=== PATIENT | female | born 2000 | race Caucasian/White ===

== ENCOUNTER 2021-06-06 08:44 | Emergency (ER) | payer OTHER, SELFPAY ==
[2021-06-06 08:56] VITALS: PULSE 81; O2SAT 95
[2021-06-06 09:00] VITALS: BP 126/71; PULSE 77; PULSE 82; RESP 20; TEMP 36.8; O2SAT 95; O2SAT 99; BMI 26.5
--- NOTE | 2021-06-06 09:03 | DI.RAD.S_ITS ---
PROCEDURE: XR CHEST 2V INDICATIONS: pain TECHNIQUE: 2 views of the chest were acquired. COMPARISON: None. FINDINGS: Surgical changes and devices: None. Lungs and pleura: Lungs are clear. No pleural effusions or pneumothorax. Mediastinum: Mediastinal contours are normal. Heart size is normal. Bones and chest wall: No suspicious bony abnormalities. Soft tissues appear unremarkable. IMPRESSION: No acute cardiopulmonary disease. Dictated by: Dontae Jalloh M.D. on 06/06/2021 at 9:42 Approved by: Dontae Jalloh M.D. on 06/06/2021 at 9:42
--- NOTE | 2021-06-06 09:07 | ED_ITS ---
HPI - Back Pain/Injury General Chief Complaint: Back Pain/Injury Stated Complaint: sharp pain in back when she breathes Time Seen by Provider: 06/06/21 09:06 Source: patient Mode of arrival: Ambulatory Limitations: no limitations History of Present Illness HPI Narrative: This is a 20-year-old female comes emergency department with complaint of a sharp pain in her right thoracic back when she breathes patient states it has been present for 2 weeks it was initially only with very deep inspiration and has become persistent even with shallow per inspiration. Movement does not seem to make it worse. She has not had any fevers or chills. She has not had any lightheadedness, no syncope. She does not have any anterior chest pain it does not radiate elsewhere. No radiation down her arm. She has not had nausea or vomiting. No cough. Patient has any issues with bowel movements or urination. She states she has not had similar symptoms in the past. She has not tried any sban-erv-xqkwjur medications other than topical Velasquez-Gramajo. She has not had any rashes or skin changes. She denies any medical issues, no prior medications, no surgeries. No known drug allergies. No tobacco, alcohol or illicit. She denies any cardiac, pulmonary or embolic history in her family. Related Data Allergies Allergy/AdvReac Type Severity Reaction Status Date / Time No Known Drug Allergies Allergy Verified 06/06/21 09:08 Review of Systems Review of Systems ROS Unobtainable: All systems reviewed & are unremarkable except as noted in HPI and below Patient History Social History Smoking Status: Never smoker Exam Narrative Exam Narrative: GENERAL: Alert and oriented x three, female in mild distress. HEENT: Head normocephalic, atraumatic, EOMI, pupils reactive, face symmetric, moist mucous membranes NECK: Supple, full range of motion CARDIOVASCULAR: Regular rate and rhythm without murmurs, rubs or gallops. RESPIRATORY: Breath sounds equal bilaterally, no wheezes rales or rhonchi. ABDOMEN: Soft, nontender. Normoactive bowel sounds all 4 quadrants. No guarding or rebound, rigidity, no mass : No CVA tenderness BACK: No cervical, thoracic or lumbar vertebral point tenderness. Patient is nontender over the upper thoracic ribs, scapular back. Patient has normal range of motion. Patient's gait is normal. EXTREMITIES: Normal range of motion, no clubbing or edema. Neurovascularly intact NEUROLOGICAL: Cranial nerves II through XII grossly intact. Moving all extremities SKIN: Warm, dry, no petechiae, no rashes or lesions, warmth, erythema or other skin changes. Initial Vital Signs Initial Vital Signs: Vital Signs Pulse Rate 81 06/06/21 08:56 Pulse Oximetry 95 06/06/21 08:56 Course Orders Ordered: Discontinued Medications Ketorolac Tromethamine (Ketorolac 30 Mg/Ml Vial) 30 mg IM NOW ONE Stop: 06/06/21 10:14 Last Admin: 06/06/21 10:29 Dose: 30 mg Documented by: CAROLINA Vital Signs Vital signs: Vital Signs - 8 hr 06/06/21 09:00 Temperature 98.2 F Pulse Rate 82 Respiratory Rate 20 Blood Pressure 126/71 Pulse Oximetry 99 MDM - Back Pain/Injury Lab Data Labs: Lab Results 06/06/21 Range/Units 09:18 SARS-CoV-2 (PCR) Negative (Negative) Imaging Data Chest x-ray: Radiologist's Impression: [place] [address] XRay Report Signed Patient: Zoila Naranjo MR#: [id number] : 2000 Acct:[id number] Age/Sex: 20 / F Date of Service: 06/06/21 Loc: Accession Number: [id number] ?? Procedure: XR chest 2V Ordering Provider: Lena Nunez D.O. PROCEDURE:? XR CHEST 2V ? INDICATIONS:? pain ? TECHNIQUE:? 2 views of the chest were acquired.? ? COMPARISON:? None. ? FINDINGS:? ? Surgical changes and devices:? None.? ? Lungs and pleura:? Lungs are clear.? No pleural effusions or pneumothorax.? ? Mediastinum:? Mediastinal contours are normal.? Heart size is normal.? ? Bones and chest wall:? No suspicious bony abnormalities.? Soft tissues appear unremarkable.? ? IMPRESSION:? No acute cardiopulmonary disease. ? ? Dictated by: Dontae Jalloh M.D. on 06/06/2021 at 9:42 ? ? Approved by: Dontae Jalloh M.D. on 06/06/2021 at 9:42?? ECG Data Attestation: I personally reviewed and interpreted this ECG as follows: Interpretation: Sinus rhythm with short SC, rate of 66, SC 88, QRS of 76, QTC of 392. No acute ST changes. Rightward axis. Nonspecific. MDM Narrative Medical decision making narrative: 20-year-old female comes when with 2 weeks of the right thoracic/scapular back pain. Patient states it has been pleuritic and increasing uncomfortable. She has not tried any medications. Patient is otherwise healthy, no daily medications are control, no long distance travel, EKG, chest x-ray and COVID swab do not show any acute abnormalities. Discussed with patient she defers any additional workup we did discuss obtaining blood for further evaluation. At this time for comfortable with pain management. We did discuss wide differential. Plan for Toradol, ibuprofen at home. Patient is having worsening symptoms that are not resolving or if she is having any new or concerning symptoms she is to return. Discharge Plan Departure Patient Disposition: Home Clinical Impression: Back pain, thoracic Instructions: Thoracic Back Pain Activity Restrictions/Additional Instructions: Follow-up with your physician for recheck if not resolving. Patient you may take ibuprofen up to 600 mg every 6 hours. If in adequate you may add Tylenol to 1000 mg every 8 hours. If you have new or worsening back pain, new chest pain, lightheadedness or passing out, shortness of breath, vomiting, new swelling in her extremities or other new or concerning symptoms please return.
[2021-06-06 09:16] VITALS: BP 123/61; PULSE 75; O2SAT 98
[2021-06-06 09:30] VITALS: BP 112/59; PULSE 64; O2SAT 99
[2021-06-06 09:55] LABS: COVID19 -Nasal RAPID Negative (Negative)
[2021-06-06 10:00] VITALS: BP 102/62; PULSE 61; O2SAT 100
[2021-06-06] MEDS: KETOROLAC 30 MG/ML VIAL IM (10:29)
== END 2021-06-06 10:46 | disposition home or self-care (01) ==
PROVIDERS: Emergency Provider Emergency Medicine
DX: M54.6 Pain in thoracic spine (principal); Z20.822 Contact with and (suspected) exposure to COVID-19
CPT/HCPCS: 71046; 87635; 93005; 96372; 99283; 99284; C9803; J1885

== ENCOUNTER → 2023-08-28 09:50 | Outpatient (CLI) | payer OTHER, SELFPAY | LOC: RESP 09:51 | PROVIDERS: Referring Provider Internal Medicine; Visit Provider Internal Medicine | DX: J45.40 Moderate persistent asthma, uncomplicated (principal) | CPT/HCPCS: 94060; 94726; 94729 ==

== ENCOUNTER 2023-10-30 21:59 | Emergency (ER) | payer OTHER, SELFPAY ==
[2023-10-30 22:06] VITALS: BP 130/75; PULSE 100; RESP 22; TEMP 36.6; O2SAT 100; BMI 29.2
--- NOTE | 2023-10-30 22:32 | ED_ITS ---
HPI - Asthma General Chief Complaint: Asthma Stated Complaint: difficulty breathing, chest tightness Time Seen by Provider: 10/30/23 22:03 Source: patient Mode of arrival: Ambulatory History of Present Illness HPI Narrative: 23-year-old woman [employer] with mild intermittent asthma recently confirmed with pulmonary function testing who complains that for the last 3 days she is having increasing tightness to the point that the exertional dyspnea, orthopnea and sleep interruption is unacceptable. She does continue to use Flovent Diskus, has been using albuterol metered-dose inhaler 2 puffs 2 to 3 times a day which is a significant increase over her good control typically with just Flovent. She does not describe any recent viral symptoms, she does not feel ill, no chest pain no palpitations no nausea vomiting or diarrhea. Related Data Home Medications Medication Instructions Recorded Confirmed albuterol sulfate 90 mcg/actuation 2 inh inhalation Q4-6H PRN 07/23/23 07/23/23 breath activated powder inhaler bupropion HCl (smoking deter) 150 300 mg PO ONCE 07/23/23 07/23/23 mg tablet,12 hr sustained-release(smoking deterrent) hydroxyzine pamoate 25 mg capsule 25 mg PO ONCE PRN 07/23/23 07/23/23 propranolol 10 mg tablet 10 mg PO ONCE PRN 07/23/23 07/23/23 trazodone 50 mg tablet 50 mg PO DAILY PRN 07/23/23 07/23/23 Previous Rx's Medication Instructions Recorded fluticasone 500 mcg-salmeterol 50 1 inh inhalation BID #60 ea 09/10/23 mcg/dose blistr powdr for inhalation montelukast 10 mg tablet 10 mg PO BEDTIME #30 tabs 10/30/23 prednisone 20 mg tablet 20 mg PO DAILY #5 tabs 10/30/23 Allergies Allergy/AdvReac Type Severity Reaction Status Date / Time No Known Drug Allergies Allergy Verified 07/23/23 08:00 Review of Systems Review of Systems Narrative: Pertinent positive and negative findings as per HPI Patient History Medical History (Updated 10/30/23 @ 22:53 by Carmen Cloud MD) Moderate persistent asthma with allergic rhinitis Social History Smoking Status: Never smoker Smoking Status: Never smoker Substance Use Type: does not use Exam Initial Vital Signs Initial Vital Signs: Vital Signs Temperature 98 F 10/30/23 22:06 Pulse Rate 100 H 10/30/23 22:06 Respiratory Rate 22 10/30/23 22:06 Blood Pressure 130/75 10/30/23 22:06 Pulse Oximetry 100 10/30/23 22:06 Oxygen Delivery Method Room Air 10/30/23 22:06 General: Healthy appearing, in no acute distress. Able to give a complete and coherent history. Well-nourished well-developed HEENT: Moist mucous membranes, normal sclera with reactive pupils, Respiratory: Lungs are clear to auscultation, no wheezing no rales no rhonchi but does complain of central chest tightness. Full and symmetrical air movement, no accessory muscle use able to speak in full sentences Cardiac: Regular rate and rhythm no murmurs no bruits Psych: Cooperative, appropriate insight and affect Course Orders Ordered: Discontinued Medications Albuterol (Albuterol 2.5 Mg/3 Ml Neb (Adult)) 2.5 mg INH NOW ONE Stop: 10/30/23 22:46 Last Admin: 10/30/23 22:59 Dose: 2.5 mg Documented By: Prednisone (Prednisone 20 Mg Tablet) 60 mg PO NOW ONE Stop: 10/30/23 22:46 Last Admin: 10/30/23 22:52 Dose: 60 mg Documented By: CRISPIN Vital Signs Vital signs: Vital Signs - 8 hr 10/30/23 22:06 10/30/23 22:52 10/30/23 23:00 Temperature 98 F Pulse Rate 100 H 86 86 Respiratory Rate 22 Blood Pressure 130/75 Pulse Oximetry 100 100 100 Oxygen Delivery Method Room Air 10/30/23 23:03 10/30/23 23:03 Temperature Pulse Rate 89 Respiratory Rate Blood Pressure 126/60 Pulse Oximetry 100 Oxygen Delivery Method MDM - Asthma MDM Narrative Medical decision making narrative: CC: Mild asthma exacerbation with exertional dyspnea difficulty reclining, Data collected from: patient Differential considered: Mild asthma exacerbation, seasonal allergies, congestive heart failure and cardiomyopathy are within the differential but felt to be far less likely. She has not tachycardic, tachypneic or hypoxic and I do not suspect pulmonary embolism Exam documented above, pertinent findings include: Fairly benign exam. Minimal wheezing despite her complaint of overall chest tightness Treatments: Oral prednisone, 60 mg, albuterol nebulized treatment Discussion: 23-year-old woman with mild asthma exacerbation. Will add Serevent, long-acting beta-agonist to her current regimen. Patient is already on Flovent and serum Solu-Medrol b.i.d.. And ask her to continue to use her a lbuterol metered-dose inhaler with her spacer up to 3 times a day, 2 puffs 4 tightness or wheezing. We will try adding Singulair to her regimen and see if this influences her symptom. We will also ask [place] At this point there is no evidence of infectious etiology, secondary cardiac concerns or alternate explanation for her symptoms. She is safe for discharge Discharge Plan Departure Patient Disposition: Home Clinical Impression: Acute asthma exacerbation Qualifiers: Asthma severity: moderate Asthma persistence: persistent Qualified Code(s): J45.41 - Moderate persistent asthma with (acute) exacerbation Instructions: DI for Asthma -- Adult Activity Restrictions/Additional Instructions: Thank you for coming in today I believe this is a mild exacerbation of your baseline asthma. I do not think that you have a viral syndrome that is making this worse. It may be related to allergens and pollens in the air. I have given you dose of oral prednisone in the emergency department and I am going to suggest 5 additional days of 20 mg of prednisone to help reduce inflammation and irritability in your lungs. Please continue your discus with the long-acting steroid as well as the long- acting bronchodilator. I have given you a prescription for montelukast/Singulair. This is a pill that helps with seasonal allergies and also can be helpful with asthma. Please try this for the next month and if you find it effective review with your primary care physician. [place] Do continue to use your short-acting albuterol rescue inhaler, 2 puffs, up to 3 times a day as needed for tightness or wheezing. If you find that you are needing it more than 3 times a day we likely can increase your daily regimen so that you are not needing the rescue inhalers frequently. This does need follow up with your primary care physician Prescriptions: New prednisone 20 mg tablet 20 mg PO DAILY Qty: 5 0RF montelukast 10 mg tablet 10 mg PO BEDTIME Qty: 30 0RF No Action fluticasone propion-salmeterol 500-50 mcg/dose blister with device 1 inh inhalation BID Qty: 60 11RF Rx Instructions: Rinse mouth with water, gargle and spit after each use bupropion HCl (smoking deter) 150 mg tablet extended release 12 hr 300 mg PO ONCE propranolol 10 mg tablet 10 mg PO ONCE PRN trazodone 50 mg tablet 50 mg PO DAILY PRN hydroxyzine pamoate 25 mg capsule 25 mg PO ONCE PRN albuterol sulfate 90 mcg/actuation aerosol powdr breath activated 2 inh inhalation Q4-6H PRN Referrals: ProviderLidia [Primary Care Provider] - Stand Alone Forms: Patient Portal/API
[2023-10-30 22:52] VITALS: PULSE 86; O2SAT 100
[2023-10-30] MEDS: predniSONE 20 MG TABLET 60 MG PO (22:52)
[2023-10-30] MEDS: ALBUTEROL 2.5 MG/3 ML NEB (ADULT) INH (22:59)
[2023-10-30 23:00] VITALS: PULSE 86; O2SAT 100
[2023-10-30 23:03] VITALS: BP 126/60; PULSE 89; O2SAT 100
== END 2023-10-30 23:08 | disposition home or self-care (01) ==
PROVIDERS: Emergency Provider Emergency Medicine
DX: J45.41 Moderate persistent asthma with (acute) exacerbation (principal)
CPT/HCPCS: 94640; 99283; 99284; J7613

== ENCOUNTER 2024-04-23 18:11 | Emergency (ER) | payer OTHER, SELFPAY ==
[2024-04-23 18:29] VITALS: BP 116/75; PULSE 89; RESP 16; TEMP 36.8; O2SAT 98; BMI 29.2
[2024-04-23 19:05] LABS: Add Manual Diff / Slide Review NO; Basophils Absolute Auto 100 /uL (0-100); Basophils Percent Auto 0.8 % (0-2); Eosinophils Absolute Auto 800 /uL (0-450); Eosinophils Percent Auto 10.1 % (2-4); Hematocrit 38.4 % (36-46); Hemoglobin 13.1 g/dL (12.0-16.0); Lymphocytes Absolute Auto 2200 /uL (1100-4500); Lymphocytes Percent Auto 27.6 % (25-40); Mean Corpuscular HGB Conc 34.2 % (30-36); Mean Corpuscular Hemoglobin 30.7 PG (26-34); Mean Corpuscular Volume 89.7 fL (80-100); Monocytes Absolute Auto 600 /uL (0-900); Monocytes Percent Auto 7.8 % (3-14); Neutrophils Absolute Auto 4300 /uL (1500-7000); Neutrophils Percent Auto 53.7 % (50-75); Platelet Count 309 X10^3/uL (150-400); Prothrombin Time 11.2 SECONDS (9.4-12.5); Red Blood Cell Count 4.28 X10^6/uL (4.0-5.2); Red Cell Distribution Width 12.6 % (11.6-14.8)
[2024-04-23 19:07] LABS: PTT Partial Thromboplastin Tim 36 SECONDS (25.1-36.5)
[2024-04-23 19:10] LABS: Alanine Aminotransferase 20 IU/L (<35); Albumin 4.5 g/dL (3.5-5.0); Albumin Globulin Ratio 1.5 (1.0-2.8); Alkaline Phosphatase 58 U/L (38-126); Aspartate Aminotransferase 26 IU/L (14-36); BUN Creatinine Ratio 12.3 (6-22); Bilirubin Total 0.4 mg/dL (0.2-1.3); Blood Urea Nitrogen 9 mg/dL (7-17); Calcium 9.1 mg/dL (8.4-10.2); Carbon Dioxide 26 mmol/L (22-32); Chloride 105 mmol/L (98-107); Estimated Glomerular Filt Rate > 60 mL/min (>60); Globulin 3.1 g/dL (1.7-4.1); Glucose 102 mg/dL (70-100); HEMOLYSIS < 15 (0-50); Potassium 3.5 mmol/L (3.4-5.1); Sodium 137 mmol/L (137-145); Total Protein 7.6 g/dL (6.3-8.2)
[2024-04-23 21:23] VITALS: BP 109/64; PULSE 78; RESP 20; TEMP 36.9; O2SAT 97
--- NOTE | 2024-04-23 21:53 | ED.GENADULT ---
HPI - General Adult General Chief complaint: Abdominal Pain Stated complaint: Blood in Stool Time Seen by Provider: 04/23/24 21:46 Source: patient Mode of arrival: Ambulatory History of Present Illness HPI narrative: Patient is a 23-year-old female who states that off and on for the past several months she has had issues with bright red blood per rectum. States that earlier today she had a bowel movement and had more bright red blood per rectum than what she has in the past. No vaginal bleeding. No urinary symptoms. No recent travel. No recent antibiotics. Not on anticoagulation. Has never had a colonoscopy. It was not painful for her to have a bowel movement. No fevers. No abdominal pain. Has not tried anything for symptoms prior to arrival. Related Data Home Medications Medication Instructions Recorded Confirmed albuterol sulfate 90 mcg/actuation 2 inh inhalation Q4-6H PRN 07/23/23 07/23/23 breath activated powder inhaler bupropion HCl (smoking deter) 150 300 mg PO ONCE 07/23/23 07/23/23 mg tablet,12 hr sustained-release(smoking deterrent) hydroxyzine pamoate 25 mg capsule 25 mg PO ONCE PRN 07/23/23 07/23/23 propranolol 10 mg tablet 10 mg PO ONCE PRN 07/23/23 07/23/23 trazodone 50 mg tablet 50 mg PO DAILY PRN 07/23/23 07/23/23 Previous Rx's Medication Instructions Recorded fluticasone 500 mcg-salmeterol 50 1 inh inhalation BID #60 ea 09/10/23 mcg/dose blistr powdr for inhalation montelukast 10 mg tablet 10 mg PO BEDTIME #30 tabs 10/30/23 prednisone 20 mg tablet 20 mg PO DAILY #5 tabs 10/30/23 Allergies Allergy/AdvReac Type Severity Reaction Status Date / Time No Known Drug Allergies Allergy Verified 07/23/23 08:00 Review of Systems Review of Systems Narrative: See HPI Patient History Medical History Moderate persistent asthma with allergic rhinitis Social History Smoking Status: Never smoker Smoking Status: Never smoker Substance Use Type: does not use Exam Initial Vital Signs Initial Vital Signs: Vital Signs Temperature 98.2 F 04/23/24 18:29 Pulse Rate 89 04/23/24 18:29 Respiratory Rate 16 04/23/24 18:29 Blood Pressure 116/75 04/23/24 18:29 Pulse Oximetry 98 04/23/24 18:29 Oxygen Delivery Method Room Air 04/23/24 18:29 Const General: cooperative, comfortable and No ill appearing [facility] Head: normal to inspection and normocephalic GI Inspection: normal to inspection and non-distended Palpation: soft and No tender Rectal Exam: visual inspection normal, No fissure, heme negative stool, No lesions and No tenderness Skin General: no rashes or lesions noted Neuro General: patient alert, patient awake and moves all extremities Extrem General: capillary refill normal Course Orders Ordered: ED Orders 04/23/24 18:48 Complete Blood Count AUTO DIFF Stat Comprehensive Metabolic Panel Stat PTT Partial Thromboplastin Oleg Stat Prothrombin Time INR Stat Type and Screen Stat Discontinued Medications Ondansetron HCl (Ondansetron 4 Mg/2 Ml Inj) 4 mg IV NOW PRN PRN Reason: Nausea And Vomiting Ondansetron HCl (Ondansetron 4 Mg Odt) 4 mg SL NOW PRN PRN Reason: Nausea And Vomiting Pantoprazole Sodium (Pantoprazole 40 Mg Vial) 80 mg IV NOW ONE Stop: 04/23/24 18:36 Last Admin: 04/23/24 22:00 Dose: Not Given Documented By: AB Vital Signs Vital signs: Vital Signs - 8 hr 04/23/24 21:23 Temperature 98.5 F Pulse Rate 78 Respiratory Rate 20 Blood Pressure 109/64 Pulse Oximetry 97 Medical Decision Making Lab Data Lab results reviewed: Yes I reviewed the patient's lab results. 04/23/24 18:48 04/23/24 18:48 Labs: Lab Results 04/23/24 Range/Units 18:48 WBC 8.0 (4.5-11.0) X10^3/uL RBC 4.28 (4.0-5.2) X10^6/uL Hgb 13.1 (12.0-16.0) g/dL Hct 38.4 (36-46) % MCV 89.7 (80-100) fL MCH 30.7 (26-34) PG MCHC 34.2 (30-36) % RDW 12.6 (11.6-14.8) % Plt Count 309 (150-400) X10^3/uL Neut % (Auto) 53.7 (50-75) % Lymph % (Auto) 27.6 (25-40) % [place] % (Auto) 7.8 (3-14) % Eos % (Auto) 10.1 H (2-4) % Baso % (Auto) 0.8 (0-2) % Neut # (Auto) 4300 (0546-2499) /uL Lymph # (Auto) 2200 (3527-9629) /uL Bl[place] # (Auto) 600 (0-900) /uL Eos # (Auto) 800 H (0-450) /uL Baso # (Auto) 100 (0-100) /uL PT 11.2 (9.4-12.5) SECONDS INR 1.0 (0.9-1.3) APTT 36 (25.1-36.5) SECONDS Sodium 137 (137-145) mmol/L Potassium 3.5 (3.4-5.1) mmol/L Chloride 105 (98-107) mmol/L Carbon Dioxide 26 (22-32) mmol/L BUN 9 (7-17) mg/dL Creatinine 0.73 (0.52-1.04) mg/dL Estimated GFR > 60 (>60) mL/min BUN/Creatinine Ratio 12.3 (6-22) Glucose 102 H (70-100) mg/dL Calcium 9.1 (8.4-10.2) mg/dL Total Bilirubin 0.4 (0.2-1.3) mg/dL AST 26 (14-36) IU/L ALT 20 (<35) IU/L Alkaline Phosphatase 58 (38-126) U/L Total Protein 7.6 (6.3-8.2) g/dL Albumin 4.5 (3.5-5.0) g/dL Globulin 3.1 (1.7-4.1) g/dL Albumin/Globulin Ratio 1.5 (1.0-2.8) Blood Type O Positive Antibody Screen Negative Point of Care Testing Test Results Negative Urine Dip Bedside Urine Glucose Negative Bedside Urine Bilirubin - Negative Bedside Urine Ketone - Negative Urine Specific [place] 1.020 Bedside Urine Occult Blood +/- Bedside Urine pH 6.0 Bedside Urine Protein +/- 15 Bedside Urine Urobilinogen - Negative Bedside Urine Nitrite - Negative Bedside Urine Leukocytes +/- 15 Esterase Point of care testing: Point of Care Testing Test Results Negative Urine Dip Bedside Urine Glucose Negative Bedside Urine Bilirubin - Negative Bedside Urine Ketone - Negative Urine Specific [place] 1.020 Bedside Urine Occult Blood +/- Bedside Urine pH 6.0 Bedside Urine Protein +/- 15 Bedside Urine Urobilinogen - Negative Bedside Urine Nitrite - Negative Bedside Urine Leukocytes +/- 15 Esterase MDM Narrative Medical decision making narrative: Labs are unremarkable. Exam is benign. Vital signs unremarkable. No indication for emergent surgical consultation. Discussed this with the patient. Advised that she talk with her medical department about a referral to see General surgery/Gastroenterology to discuss further evaluation and treatment. We discussed return precautions. She expressed understanding and agreement with plan. Discharge Plan Departure Patient Disposition: Home Clinical Impression: Bright red rectal bleeding Instructions: DI for Rectal Bleeding Activity Restrictions/Additional Instructions: Continue to take all of your medications as directed. I do recommend that you talk with your medical department about a follow-up in the indications for referral to see either General surgery or Gastroenterology. Return to the emergency department for new symptoms. Prescriptions: No Action fluticasone propion-salmeterol 500-50 mcg/dose blister with device 1 inh inhalation BID Qty: 60 11RF Rx Instructions: Rinse mouth with water, gargle and spit after each use prednisone 20 mg tablet 20 mg PO DAILY Qty: 5 0RF montelukast 10 mg tablet 10 mg PO BEDTIME Qty: 30 0RF bupropion HCl (smoking deter) 150 mg tablet extended release 12 hr 300 mg PO ONCE propranolol 10 mg tablet 10 mg PO ONCE PRN trazodone 50 mg tablet 50 mg PO DAILY PRN hydroxyzine pamoate 25 mg capsule 25 mg PO ONCE PRN albuterol sulfate 90 mcg/actuation aerosol powdr breath activated 2 inh inhalation Q4-6H PRN Referrals: Provider,Lidia PAIZ [Primary Care Provider] - Stand Alone Forms: Patient Portal/API/Survey
== END 2024-04-23 22:00 | disposition home or self-care (01) ==
PROVIDERS: Emergency Provider Emergency Medicine
DX: K62.5 Hemorrhage of anus and rectum (principal)
CPT/HCPCS: 36415; 80053; 81003; 81025; 85025; 85610; 85730; 86850; 86900; 86901; 99283